=== PATIENT | male | born 1945 | race Caucasian/White ===

== ENCOUNTER 2021-03-22 03:19 | Outpatient (CLI) | payer MEDICARE, SELFPAY ==
[2021-03-22 09:46] LABS: Absolute Basophil Count 0.03 10^3/uL (0.0-0.2); Absolute Lymphocyte Count 0.92 10^3/uL (1.2-3.4); Absolute Monocyte Count 0.56 10^3/uL (0.1-0.8); Absolute Neutrophil Count 1.92 10^3/uL (1.2-6.7); Basophils % 0.8; Eosinophils % 5.5; HGB 13.3 g/dL (13.5-17.5); Lymphocytes % 25.3; MCHC 33.3 % (32.0-36.0); MCV 90.3 fL (80-95); MPV 9.9 fL (8.0-11.0); Monocytes % 15.4; Nucleated RBC 0 %; Platelet Count 236 10^3/uL (130-400); RBC 4.43 10^6/uL (4.36-5.78); RDW 13.2 % (11.8-14.1); RDW-SD 43.8 fL; WBC 3.63 10^3/uL (4.4-10.8)
[2021-03-23 16:39] LABS: PSA, Ultrasensitive 0.23 ng/mL (<= 6.5)
[2021-03-25 11:58] LABS: Testosterone, Total 391 ng/dL (240-950)
== END 2021-03-22 03:20 | disposition home or self-care (01) ==
LOC: LBO 03:20
PROVIDERS: PCP Physician Assistant Medical; Visit Provider Nurse Practitioner Family
DX: C61 Malignant neoplasm of prostate (principal)
CPT/HCPCS: 36415; 84153; 84403; 85025